=== PATIENT | female | born 2000 | race Caucasian/White ===

== ENCOUNTER 2022-07-31 06:19 | Inpatient (IN) ==
[2022-07-31] MEDS ORDERED: PITOCIN ONE (06:34)
[2022-07-31] MEDS ORDERED: D5 1/2 NS 1,000 ML 1,000 ML IV ONE (06:34)
[2022-07-31] MEDS ORDERED: BETADINE SOLN ONE (06:34)
[2022-07-31] MEDS ORDERED: D5 1/2 NS 1,000 mL + PITOCIN 20 UNITS/L IV 20 UNITS/1,000 ML BAG IV ONE (06:35)
[2022-07-31] MEDS ORDERED: D5 LR + PITOCIN 10 UNITS/L 10 UNITS/1,000 ML BAG IV ONE (06:35)
--- NOTE | 2022-07-31 07:06 | DR.OB ---
OB Quick Note - Assessment/Plan Assessment/Plan: L&D 07/31/22 at 6:55am S-No complaint. O-Afebrile,VSS SFT=714 with good LTV, +accel, no decel. CTX=none CVX=1cm/50%/-1/VTX AROM with clear fluid. IUPC and FSE placed. A-IUP at 39 2/7 weeks for induction P-Begin pitocin induction Anticipate
[2022-07-31] MEDS ORDERED: NUBAIN INJ 20 MG AMP IVP PRN (07:24)
[2022-07-31] MEDS ORDERED: ZOFRAN INJ 4 MG VIAL IVP PRN (07:24)
[2022-07-31] MEDS ORDERED: D5 1/2 NS 1,000 ML 1,000 ML IV SCH (07:24)
[2022-07-31] MEDS ORDERED: STADOL INJ IVP PRN (07:24)
[2022-07-31] MEDS ORDERED: REGLAN INJ 10 MG VIAL IVP PRN (07:24)
[2022-07-31] MEDS ORDERED: D5 LR + PITOCIN 10 UNITS/L 10 UNITS/1,000 ML BAG IV PRN (07:24)
[2022-07-31] MEDS ORDERED: PITOCIN IVP ONE (07:24)
[2022-07-31] MEDS ORDERED: LR 1,000 ML IV 1,000 ML IV ONE (11:59)
--- NOTE | 2022-07-31 12:09 | DR.OB ---
OB Quick Note - Assessment/Plan Assessment/Plan: L&D 07/31/22 at 12:05pm Pitocin=18mu/min. S-No complaint except pain with CTX. O-Afebrile,VSS XDO=052 with good LTV, +accel, no decel. CTX=q 1 1/2 to 2 min., about 45-55mmHg CVX=3-4cm/50%/-1/VTX A-IUP at 39 2/7 weeks for induction P-Continue pitocin induction Anticipate
[2022-07-31] MEDS ORDERED: NAROPIN EPIDURAL 0.2% 100 ML ONE (12:14)
[2022-07-31] MEDS ORDERED: FENTANYL VIAL INJ 100 mcg ONE (12:14)
--- NOTE | 2022-07-31 17:28 | DR.OB ---
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 Head delivered over intact perineum. No nuchal cord. Nose and mouth bulb suctioned. Body delivered over intact perineum. handed to attendant. Cord sent for gases. Placenta delivered spontaneously / intact / 3 vessel cord. No CVX tears. A small midline second degree tear noted and repaired with 0-vicryl in usual fashion. Viable male infant, VTX/OA, , wt=7'11" and 8/9, stable to NBN. Mother stable to RR. MVS=[id number].
[2022-07-31] MEDS: D5 1/2 NS 1,000 ML 1,000 ML with PITOCIN 20 UNITS IV SCH ×2 (17:44)
[2022-07-31] MEDS ORDERED: ADACEL or BOOSTRIX TDaP VACCINE IM ONE (18:18)
[2022-07-31] MEDS ORDERED: MILK OF MAGNESIA PO PRN (18:18)
[2022-07-31] MEDS ORDERED: AMBIEN PO PRN (18:18)
[2022-07-31] MEDS: MOTRIN TAB 800 MG PO PRN (20:09)
[2022-07-31] MEDS: DERMOPLAST PAIN RELIEF SPRAY TOP PRN (21:00)
[2022-08-01 05:18] LABS: HEMATOCRIT 33.5 % (36.0-47.0); HEMOGLOBIN 11.7 g/dL (12.0-16.0)
[2022-08-01] MEDS: D5 1/2 NS 1,000 ML 1,000 ML with PITOCIN 20 UNITS IV SCH ×4 (06:20→10:17)
[2022-08-01] MEDS: MOTRIN TAB 800 MG PO PRN ×3 (06:21→23:30)
[2022-08-01] MEDS: PRENATAL PLUS PO SCH (10:17)
[2022-08-01] MEDS: DERMOPLAST PAIN RELIEF SPRAY TOP PRN (21:47)
[2022-08-02 08:26] VITALS: BP 121/68; PULSE 87; TEMP 98.1; O2SAT 97
[2022-08-02] MEDS: PRENATAL PLUS PO SCH (08:30)
[2022-08-02] MEDS: MOTRIN TAB 800 MG PO PRN (08:31)
== END 2022-08-02 10:20 | disposition home or self-care (01) | DRG 807 ==
LOC: LD 06:19 → MED/SURG 18:36
PROVIDERS: ADMIT Specialist; ATTEND Specialist
DX: Z37.0 Single live birth; R79.89 Other specified abnormal findings of blood chemistry; Z01.818 Encounter for other preprocedural examination; O26.893 Other specified pregnancy related conditions, third trimester; O70.1 Second degree perineal laceration during delivery; Z3A.39 39 weeks gestation of pregnancy